=== PATIENT | female | born 1945 | race Caucasian/White ===

== ENCOUNTER 2024-11-13 17:32 | Emergency (ER) | payer OTHER, SELFPAY ==
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
[2024-11-13 17:44] VITALS: BP 154/53; PULSE 82; RESP 16; TEMP 36.3; O2SAT 94; BMI 27.4
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
[2024-11-13 19:53] VITALS: BP 142/58; PULSE 61; RESP 16; TEMP 36.6; O2SAT 97
[2024-11-13 19:55] VITALS: BP 142/58; PULSE 61; RESP 16; TEMP 36.6; O2SAT 97
--- OUTSIDE RECORDS SUMMARY | 2024-11-13 20:26 | XMS_ITS | Data Portability ---
Author Organization [place] - [facility], [facility] Address [id number] [place] [address] Care Team Providers Care Scientist Electronics Name Role Phone ALLENWALIIE Primary Care Provider Assessment No assessment recorded. Plan of Treatment Reminders Order Date Submit Date Provider Last Modified By Organization Details Last Modified Time Details Appointments None recorded. Lab pap, IG + reflex HPV 2015 016 JIGNESH [facility], [address], [place], [address], 6 11:40:14 urinalysis , dipstick 2015 016 toni In-Office Order, Internal Use Only DO Not Attach Compendium DO Not Attach Compendium, Do Not Delete/merge, [id number] 6 14:16:11 Referral None recorded. Procedures None recorded. Surgeries None recorded. Imaging MAMMO, screening, digital, bilateral 2015 Elle morataya r[address], [address], 6 16:38:43 Medication Orders None recorded. Patient TargetsNo targets recorded. Patient InstructionsNo instructions recorded. Reason for Referral None Reported. Results Created Date Observation Date Name Description Value Unit Range Abnormal Flag Note LastModifiedBy Organization Detail LastModifiedTime 01/26/20 16 01/26/2016 pap, LB + refle x HPV mRNA E6/E7 clinical information: none given normal Not Available [facility] [address] [place], [place], [address], 01/26/2016 11:40:14 01/26/20 16 01/26/2016 pap, LB + refle x HPV mRNA E6/E7 LMP: NONE GIVEN normal Not Available [facility] [address], [address], 01/26/2016 11:40:14 01/26/20 16 01/26/2016 pap, LB + refle x HPV mRNA E6/E7 prev. Pap: NONE GIVEN normal Not Available [facility]- [address], [address], 01/26/2016 11:40:14 01/26/20 16 01/26/2016 pap, LB + refle x HPV mRNA E6/E7 prev. BX: NONE GIVEN normal Not Available [facility]- [address], [address], 01/26/2016 11:40:14 01/26/20 16 01/26/2016 pap, LB + refle x HPV mRNA E6/E7 source: none given normal Not Available [facility]- [address], [address], 01/26/2016 11:40:14 01/26/20 16 01/26/2016 pap, LB + refle x HPV mRNA E6/E7 statement of adequacy: normal SATIS FACTO RY FOR EVALU ATION Not Available [facility]- [address], [address], 01/26/2016 11:40:14 01/26/20 16 01/26/2016 pap, LB + refle x HPV mRNA E6/E7 interpretati on/result: Negat roya for intra epith elial lesio n or malig camila . Atrop paul monteiro rn; predo lakia ash parab jayashree cells Not Available [facility]- [address], [address], 01/26/2016 11:40:14 01/26/20 16 01/26/2016 pap, LB + refle x HPV mRNA E6/E7 comment: normal This Pap test has been evalu ated with humble florez techn ology . Not Available [facility] [address] [place], [address], 01/26/2016 11:40:14 01/26/20 16 01/26/2016 pap, LB + refle x HPV mRNA E6/E7 cytotechnolo gist: normal [facility], CT( CP) CT scree jess locat ion: [facility] [address], [place] [address] Not Available [facility] [address] [place], [address], 01/26/2016 11:40:14 01/21/20 16 01/21/2016 urina lysis , dipst ick Interpretati on negati ve Not Available In-Office Order Internal Use Only DO Not Attach Compendium DO Not Attach Compendium, Do Not Delete/merge, [id number] 01/21/2016 13:39:45 01/21/20 16 01/21/2016 urina lysis , dipst ick Blood Modera te: +2 Not Available In-Office Order Internal Use Only DO Not Attach Compendium DO Not Attach Compendium, Do Not Delete/merge, [id number] 01/21/2016 13:39:45 Result Notes None recorded. Problems Name Problem SNOMED Code Status Onset Date Resolution Date Notes Provider Name and Address Organization Details Recorded Time Benign hematuria Active CANDY FLORES MD [address] [place] [address], [place], [place], , [facility] 6 14:16:11 Problem Notes None recorded. Procedures Surgical History Date Name Laterality Status Provider Name and Address Organization Details Recorded Time 01/22/20 16 Date of Last Pap Smear completed Micheline Hernandez [facility] 01/27/2016 09:50:52 01/21/20 16 Date of Last Mammogram completed Micheline Hernandez [facility] 01/27/2016 09:50:52 Tonsillectomy completed CANDY FLORES MD [address] [facility], [place], [place], , [facility] 01/21/2016 13:55:42 Treatment of ankle fracture completed CANDY FLORES MD [address] [facility], [place], [place], , [facility] 01/21/2016 13:55:42 Imaging Results None recorded. Procedure Notes None recorded. Medical Equipment None Reported. Allergies No known drug allergies Medications Not known to be on any medication Vitals Date Recorded Body weight Body height Body mass index (BMI) Systolic blood pressure Diastolic blood pressure Provider Name and Address Organization Details Last Updated DateTime 01/21/2016 82191.79 8275 g 157.48 cm 28.8 kg/m2 120 mm[Hg] 72 mm[Hg] Melyssa Greene [facility] 6 13:43:09 Social History Question Answer Notes LastModified by Organizat ion Details LastModified Time Tobacco Smoking Status Never Smoker Melyssa Greene [facility] 01/21/2016 13:43:42 What Is Your Level Of Alcohol Consumption? Occasional [email or web address] Information not available 01/21/2016 Sex: Unknown Functional Status None recorded. Mental Status None recorded. Family History Relationship Description Onset Age of this Age Resolved Age Notes LastModified by Organization Details LastModified Time Sister Family history of Mother alive and well no cancer s jjaffe Not available 01/21/2016 13:55:42 Mother Family history of Mother alive and well trauma tic jjaffe Not available 01/21/2016 13:55:42 Notes:no breast colon or ova jacob cancers Medical History Condition Response Neurological Disorder Y Heart Problems N Thyroid Problems N Bladder disease Y Hyperlipidemia N Asthma N Hypertension N Gynecological History Statement/Question Response Date of Last Pap Smear 01/22/2016 Date of Last Mammogram 01/21/2016 Obstetrics History GPAL:G 0 P 0 0 0 0 Past Encounters Encounter ID Performer Location Encounter Start Date Encounter Closed Date Diagnosis/Indication Diagnosis SNOMED-CT Code Diagnosis ICD10 Code Diagnosis Note [id number] CANDY FLORES MD TSW1 [address] [place] [address] 01/21/2016 13:32:17 01/21/2016 14:32:16 Gynecologic examination 29720059 Z01.419 Z12.4 if pap normal will exit screening- explained to patient. recommende d colonoscop y and annual mammograph y Benign hematuria 4532505 4 N02.9 has follow up with urologist this month Health Concerns Section Related Observation LastModified by Organization Detai ls LastModified Time None Recorded Concern Status LastModified by Organization Details LastModified Time None Recorded Advance Directives Directive None Recorded Payers Encounter Date Sequence Insurance Name Policy Number Policy Vaca Covered Member ID Vaca Member ID Guarantor Name 01/21/2016 1 MEDICARE B-CT: NGS Ambar Barajas [id number] Ambar Barajas Notes Date Note Type Note Provider Name and Address Organization Details Recorded Time 01/21/2016 text/html Generic HPI TemplateReported bypatient.Notes:no bleeding or pain no breast symptoms. CANDY FLORES MD [address] [place] [address] Rd, [place], [address], [place] - [facility] 01/21/2016 14:16:13 OBGyn Episode No OBEpisode recorded.
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
== END 2024-11-13 20:26 | disposition home or self-care (01) ==
LOC: HO.ED 20:25
PROVIDERS: Emergency Provider Emergency Medicine; PCP Family Medicine
DX: Z04.1 Encounter for examination and observation following transport accident (principal); R51.9 Headache, unspecified; M25.512 Pain in left shoulder; M25.511 Pain in right shoulder; M79.642 Pain in left hand; M79.641 Pain in right hand; R10.2 Pelvic and perineal pain; M79.672 Pain in left foot; M25.562 Pain in left knee
CPT/HCPCS: 70450; 72125; 73030; 73130; 73502; 73562; 73630; 99282; 99284

== ENCOUNTER → 2024-11-13 17:48 | Outpatient (BNV) | payer SELFPAY | PROVIDERS: Emergency Provider Emergency Medicine; PCP Family Medicine; Visit Provider Radiology Diagnostic Radiology | DX: M54.2 Cervicalgia (principal); R51.9 Headache, unspecified; M25.551 Pain in right hip; M25.561 Pain in right knee; M25.512 Pain in left shoulder; M25.511 Pain in right shoulder; M79.641 Pain in right hand; M79.642 Pain in left hand; M79.672 Pain in left foot | CPT/HCPCS: 70450; 72125; 73030; 73130; 73502; 73562; 73630 ==